=== PATIENT | male | born 1935 | race Caucasian/White ===

== ENCOUNTER 2024-09-13 22:58 | Inpatient (IN) | payer MEDICARE, OTHER ==
[~2024-09-13] VITALS: Ht 160 cm; Wt 52.2 kg
[2024-09-14 00:07] LABS: BASOPHILS % (AUTO) 0.7 % (0.0-2.0); EOSINOPHILS # (AUTO) 0.1 K/uL (0.0-0.7); EOSINOPHILS % (AUTO) 1.4 % (0.0-6.0); HEMATOCRIT 32 % (39-51); HEMOGLOBIN 10.6 g/dL (13.5-17.5); LYMPHOCYTES # (AUTO) 1.5 K/uL (0.8-4.8); LYMPHOCYTES % (AUTO) 21.7 % (20.0-44.0); MEAN CORPUSCULAR HEMOGLOBIN 33 PG (26.0-33.0); MEAN CORPUSCULAR HGB CONC 33 g/dl (31.0-36.0); MEAN CORPUSCULAR VOLUME 99 fL (80-96); MONOCYTES # (AUTO) 0.4 K/uL (0.1-1.30); MONOCYTES % (AUTO) 5.8 % (2.0-12.0); NEUTROPHILS # (AUTO) 4.8 K/uL (1.8-8.9); NEUTROPHILS % (AUTO) 70.4 % (43.0-81.0); PLATELET COUNT (AUTO) 138 K/uL (150-450); RED BLOOD CELL COUNT(AUTO) 3.27 MIL/uL (4.5-6.0); RED CELL DISTRIBUTION WIDTH 16.4 % (11.5-15.0); WHITE BLOOD COUNT (AUTO) 6.8 K/uL (4.3-11.0)
[2024-09-14 00:36] LABS: CALCIUM, SERUM 8.2 mg/dL (8.5-10.1); CARBON DIOXIDE 30 mmol/L (21-32); CHLORIDE 107 mmol/L (98-107); CREATININE 1.4 mg/dL (0.6-1.3); GLUCOSE 148 mg/dL (74-106); POTASSIUM 3.3 mmol/L (3.5-5.1); SODIUM SERUM 145 mmol/L (136-145); UREA NITROGEN, BLOOD 24 mg/dL (7-18)
[2024-09-14 00:41] LABS: ACETAMINOPHEN < 10 ug/ml (10-30); ALANINE AMINOTRANSFERASE 26 U/L (12-78); ALBUMIN 2.9 g/dL (3.4-5.0); ALCOHOL, BLOOD < 3 mg/dL (0-10); ALKALINE PHOSPHATASE 125 U/L (46-116); ASPARTATE AMINOTRANSFERASE 27 U/L (15-37); BILIRUBIN,DIRECT 0.2 mg/dL (0.0-0.2); BILIRUBIN,TOTAL 0.7 mg/dL (0.2-1.0); TOTAL PROTEIN, SERUM 6.1 g/dL (6.4-8.2)
[2024-09-14 01:15] LABS: SALICYLATE 0.5 mg/dL (2.8-20.0)
[2024-09-14] MEDS ORDERED: HYPR15DR4 EACHEYE (08:32)
[2024-09-14] MEDS ORDERED: HYDR-4303 PO (08:32)
[2024-09-14] MEDS ORDERED: AMIN30LI27 PO (08:32)
[2024-09-14] MEDS ORDERED: BUPR-54 PO (08:32)
[2024-09-14] MEDS ORDERED: FLUT16SP16 BNOSTRILS (08:32)
[2024-09-14] MEDS ORDERED: HYDR30CR79 RC (08:32)
[2024-09-14] MEDS ORDERED: LINA72CA PO (08:32)
[2024-09-14] MEDS ORDERED: HYDR28.32 TP (08:32)
[2024-09-14] MEDS ORDERED: LIDO1ADH82 TP (08:32)
[2024-09-14] MEDS ORDERED: LOPE2CAP14 PO (08:32)
[2024-09-14] MEDS ORDERED: ACET325T53 PO (08:32)
[2024-09-14] MEDS ORDERED: PANT40TA49 PO (08:32)
[2024-09-14] MEDS ORDERED: ERGO500093 PO (08:32)
[2024-09-14] MEDS ORDERED: ONDA4TAB11 PO (08:32)
[2024-09-14] MEDS ORDERED: DICL100G34 TP (08:32)
[2024-09-14] MEDS ORDERED: PARO40TA PO (08:32)
[2024-09-14] MEDS ORDERED: FAMO40TA7 PO (08:32)
[2024-09-14] MEDS ORDERED: FLUT1BLS IH (08:32)
[2024-09-14] MEDS ORDERED: NICO1PAT44 TP (08:32)
[2024-09-14] MEDS ORDERED: AMIO200T5 PO (08:32)
[2024-09-14] MEDS ORDERED: IRON1CAP4 PO (08:32)
[2024-09-14] MEDS ORDERED: DONE10TA44 PO (08:32)
[2024-09-14] MEDS ORDERED: APIX5TAB PO (08:32)
[2024-09-14] MEDS ORDERED: MULT-213 PO (08:32)
[2024-09-14] MEDS ORDERED: METO-357 PO (08:32)
[2024-09-14 11:52] LABS: APPEARANCE,URINE SLIGHTLY CLOUDY (CLEAR); BILIRUBIN,URINE NEGATIVE (NEGATIVE); BLOOD, URINE 3+ Ery/uL (NEGATIVE); COLOR,URINE YELLOW (YELLOW); KETONES,URINE NEGATIVE (NEGATIVE); LEUKOCYTE ESTERASE ,URINE NEGATIVE (NEGATIVE); NITRITE, URINE NEGATIVE (NEGATIVE); PROTEIN,URINE TRACE mg/dl (NEGATIVE); UGLUCOSE NEGATIVE (NEGATIVE); UROBILINOGEN,URINE 0.2 EU/dL (0.2)
[2024-09-14 12:07] LABS: ADD URINE CULTURE YES; BACTERIA,URINE None seen /HPF (None Seen); RBC,URINE TOO NUMEROUS TO COUN /HPF (0-2); SQUAMOUS EPITHELIAL CELL,UR None Seen /HPF (None Seen)
[2024-09-14 12:08] LABS: FINE GRANULAR CASTS,URINE Few /LPF (None Seen); TRICHOMONAS,URINE None Seen /HPF (None Seen); YEAST,URINE None Seen /HPF (None Seen)
[2024-09-14 12:13] LABS: AMPHETAMINE, URINE NEGATIVE (NEGATIVE); BARBITURATE, URINE NEGATIVE (NEGATIVE); BENZODIAZEPINE, URINE NEGATIVE (NEGATIVE); CANNABINOID, URINE NEGATIVE (NEGATIVE); COCCAINE, URINE NEGATIVE (NEGATIVE); OPIATE, URINE NEGATIVE (NEGATIVE); PHENCYCLIDINE SCREEN,URINE NEGATIVE (NEGATIVE)
[2024-09-15] MEDS ORDERED: METHOCARBAMOL (500MG) 500 MG TABLET ONE (00:06)
[2024-09-15] MEDS: METHOCARBAMOL (750MG) 750 MG TABLET PO SCH (00:14)
[2024-09-15 02:30] VITALS: BP 147/81; TEMP 98.3; O2SAT 97
[2024-09-15] MEDS ORDERED: MAGNESIUM HYDROXIDE 30 ML UDC PO PRN (03:00)
[2024-09-15] MEDS ORDERED: MAG HYDROX/AL HYDROX/SIMETH 30 ML UDC PO PRN (03:00)
[2024-09-15] MEDS ORDERED: ZOLPIDEM TARTRATE 5 MG TABLET PO PRN (03:00)
[2024-09-15] MEDS ORDERED: ACETAMINOPHEN 325 MG TABLET PO PRN (03:00)
[2024-09-15] MEDS: BLOOD SUGAR DIAGNOSTIC 1 EACH STRIP IN ONE (03:36)
[2024-09-15] MEDS ORDERED: HYDROCORTISONE CR 30 GM TUBE RC PRN (06:00)
[2024-09-15] MEDS ORDERED: HYDROCORTISONE 1% CREAM 28.35 GM TUBE TP PRN (06:00)
[2024-09-15] MEDS ORDERED: HYDROCODONE/APAP 5/325MG TABLET PO PRN (06:00)
[2024-09-15] MEDS ORDERED: POLYVINYL ALCOHOL 15 ML BOTTLE EACHEYE PRN (06:30)
[2024-09-15 08:00] VITALS: BP 148/79; TEMP 97.6; O2SAT 98
[2024-09-15] MEDS: PANTOPRAZOLE 40 MG TABLET.DR PO SCH (08:50)
[2024-09-15] MEDS: DICLOFENAC TOPICAL 100 GM TUBE TP SCH (08:51)
[2024-09-15] MEDS: FAMOTIDINE (20 MG) 20 MG TABLET PO SCH (08:52)
[2024-09-15] MEDS: AMIODARONE HCL 200 MG TABLET PO SCH (08:52)
[2024-09-15] MEDS: LIDOCAINE 5% (PATCH) 1 EA PATCH TP SCH (08:53)
[2024-09-15] MEDS: METOPROLOL SUCCINATE 50 MG TAB.SR.24H PO SCH (08:53)
[2024-09-15] MEDS: APIXABAN 5 MG TABLET PO SCH (08:54)
[2024-09-15] MEDS: PROSOURCE / PROSTAT (PYXIS) 30 ML UDC PO SCH (08:54)
[2024-09-15] MEDS ORDERED: Medication Not On Formulary EA (Linaclotide (Linzess) 72 MCG) PO SCH (09:00)
[2024-09-15] MEDS: OLANZAPINE 10 MG VIAL IM ONE (10:36)
[2024-09-15] MEDS: OXCARBAZEPINE 150 MG TABLET PO SCH (15:09)
[2024-09-15 16:00] VITALS: BP 139/71; TEMP 97.6; O2SAT 97
[2024-09-15] MEDS ORDERED: IRON PS CMPLX PO SCH (18:00)
[2024-09-15] MEDS ORDERED: [UNRECOGNIZED DRUG - OTHER] PO SCH (18:00)
[2024-09-15] MEDS ORDERED: VIT B12 PO SCH (18:00)
[2024-09-15] MEDS: NICOTINE PATCH (14MG) 14 MG PATCH.TD24 TD SCH (18:03)
[2024-09-15] MEDS: FLUTICASONE/VILANTEROL 1 EACH BLST.W.DEV IH SCH (18:03)
[2024-09-15] MEDS: MULTIVIT W/MINERALS 1 TAB TABLET PO SCH (18:03)
[2024-09-15 21:17] VITALS: BP 115/53; TEMP 97.9; O2SAT 97
[2024-09-15] MEDS: DONEPEZIL 5 MG TABLET PO SCH (21:22)
[2024-09-15] MEDS: ZOLPIDEM TARTRATE 5 MG TABLET PO PRN (21:24)
[2024-09-16 07:52] LABS: BASOPHILS # (AUTO) 0.1 K/uL (0.0-0.2); BASOPHILS % (AUTO) 0.8 % (0.0-2.0); EOSINOPHILS # (AUTO) 0.2 K/uL (0.0-0.7); EOSINOPHILS % (AUTO) 2.8 % (0.0-6.0); HEMATOCRIT 34 % (39-51); HEMOGLOBIN 11.3 g/dL (13.5-17.5); LYMPHOCYTES # (AUTO) 1.6 K/uL (0.8-4.8); LYMPHOCYTES % (AUTO) 23.4 % (20.0-44.0); MEAN CORPUSCULAR HEMOGLOBIN 33 PG (26.0-33.0); MEAN CORPUSCULAR HGB CONC 33 g/dl (31.0-36.0); MEAN CORPUSCULAR VOLUME 100 fL (80-96); MONOCYTES # (AUTO) 0.5 K/uL (0.1-1.30); MONOCYTES % (AUTO) 7.2 % (2.0-12.0); NEUTROPHILS # (AUTO) 4.5 K/uL (1.8-8.9); NEUTROPHILS % (AUTO) 65.8 % (43.0-81.0); PLATELET COUNT (AUTO) 119 K/uL (150-450); RED BLOOD CELL COUNT(AUTO) 3.42 MIL/uL (4.5-6.0); RED CELL DISTRIBUTION WIDTH 16.5 % (11.5-15.0); WHITE BLOOD COUNT (AUTO) 6.8 K/uL (4.3-11.0)
[2024-09-16 08:00] VITALS: BP 100/72; TEMP 98.7; O2SAT 98
[2024-09-16 08:15] LABS: CALCIUM, SERUM 8.5 mg/dL (8.5-10.1); CREATININE 1.1 mg/dL (0.6-1.3); POTASSIUM 3.8 mmol/L (3.5-5.1)
[2024-09-16] MEDS: QUETIAPINE FUMARATE 25 MG TABLET PO PRN (15:47)
[2024-09-16 16:00] VITALS: BP 145/71; TEMP 98; O2SAT 96
[2024-09-16 20:45] VITALS: BP 108/68; TEMP 98.1; O2SAT 96
[2024-09-17 08:00] VITALS: BP 116/74; TEMP 98.7; O2SAT 97
[2024-09-17 16:00] VITALS: BP 100/53; TEMP 98.1; O2SAT 97
[2024-09-17 20:12] VITALS: BP 102/59; TEMP 98.5; O2SAT 96
[2024-09-17] MEDS: CEPHALEXIN MONOHYDRATE 500 MG CAPSULE PO SCH (21:23)
[2024-09-18 08:00] VITALS: BP 103/57; TEMP 98.2; O2SAT 97
[2024-09-18 16:00] VITALS: BP 100/65; TEMP 97.9; O2SAT 98
[2024-09-18 20:00] VITALS: BP 105/67; TEMP 98.4; O2SAT 97
[2024-09-19 08:00] VITALS: BP 124/76; TEMP 97.9; O2SAT 97
[2024-09-19 16:00] VITALS: BP 113/68; TEMP 97.8; O2SAT 97
[2024-09-19] MEDS: AMOX/CLAVULANATE 875 MG TABLET PO SCH (16:25)
[2024-09-19 20:14] VITALS: BP 109/55; TEMP 97.7; O2SAT 98
[2024-09-19 21:04] VITALS: BP 113/65; TEMP 97.7; O2SAT 98
[2024-09-20 08:00] VITALS: BP 140/74; TEMP 98; O2SAT 98
[2024-09-20 16:00] VITALS: BP 125/60; TEMP 97.5; O2SAT 97
[2024-09-20] MEDS: Z GUARD REMEDY 4 OZ OINT TP PRN (17:25)
[2024-09-20 20:00] VITALS: BP 103/46; TEMP 97.7; O2SAT 98
[2024-09-21 09:38] VITALS: BP 134/78; TEMP 97.4; O2SAT 93
[2024-09-21 21:12] VITALS: BP 108/67; TEMP 97.9; O2SAT 95
[2024-09-22 08:00] VITALS: BP 100/63; TEMP 97.9; O2SAT 97
[2024-09-22 16:00] VITALS: BP 119/85; TEMP 97.8; O2SAT 98
[2024-09-22 20:57] VITALS: BP 104/69; TEMP 98.1; O2SAT 97
[2024-09-23 08:00] VITALS: BP 104/73; TEMP 98.7; O2SAT 96
[2024-09-23 09:52] LABS: ALBUMIN 2.9 g/dL (3.4-5.0); BILIRUBIN,TOTAL 0.6 mg/dL (0.2-1.0); CALCIUM, SERUM 8.4 mg/dL (8.5-10.1); CREATININE 1.2 mg/dL (0.6-1.3); MAGNESIUM 2.2 mg/dL (1.8-2.4); PHOSPHORUS 3.5 mg/dL (2.5-4.9); POTASSIUM 3.8 mmol/L (3.5-5.1); TOTAL PROTEIN, SERUM 6.6 g/dL (6.4-8.2)
[2024-09-23 10:05] LABS: BASOPHILS # (AUTO) 0.1 K/uL (0.0-0.2); BASOPHILS % (AUTO) 0.8 % (0.0-2.0); EOSINOPHILS # (AUTO) 0.2 K/uL (0.0-0.7); EOSINOPHILS % (AUTO) 2.3 % (0.0-6.0); HEMATOCRIT 34 % (39-51); HEMOGLOBIN 11.5 g/dL (13.5-17.5); LYMPHOCYTES # (AUTO) 1.5 K/uL (0.8-4.8); LYMPHOCYTES % (AUTO) 14.9 % (20.0-44.0); MEAN CORPUSCULAR HEMOGLOBIN 33 PG (26.0-33.0); MEAN CORPUSCULAR HGB CONC 33 g/dl (31.0-36.0); MEAN CORPUSCULAR VOLUME 98 fL (80-96); MONOCYTES # (AUTO) 0.5 K/uL (0.1-1.30); MONOCYTES % (AUTO) 5.3 % (2.0-12.0); NEUTROPHILS # (AUTO) 7.7 K/uL (1.8-8.9); NEUTROPHILS % (AUTO) 76.7 % (43.0-81.0); PLATELET COUNT (AUTO) 149 K/uL (150-450); RED CELL DISTRIBUTION WIDTH 16.3 % (11.5-15.0)
[2024-09-23 16:00] VITALS: BP 122/66; TEMP 97.9; O2SAT 97
[2024-09-23 20:16] VITALS: BP 111/67; TEMP 97.9; O2SAT 97
[2024-09-24 08:00] VITALS: BP 113/67; TEMP 98.7; O2SAT 96
[2024-09-24 16:00] VITALS: BP 104/70; TEMP 97.8; O2SAT 98
[2024-09-24 20:00] VITALS: BP 104/65; TEMP 97.7; O2SAT 98
[2024-09-25 08:00] VITALS: BP 100/52; TEMP 98.7; O2SAT 98
== END 2024-09-25 13:30 | DRG 885 ==
LOC: ER 23:11 → GPS 09-15 01:08
PROVIDERS: ADMIT Psychiatry & Neurology Psychiatry; ATTEND Student in an Organized Health Care Education/Training Program
DX: F39 Unspecified mood [affective] disorder (principal); N18.9 Chronic kidney disease, unspecified; N17.0 Acute kidney failure with tubular necrosis; E44.0 Moderate protein-calorie malnutrition; F03.92 Unspecified dementia, unspecified severity, with psychotic disturbance; N39.0 Urinary tract infection, site not specified; F03.93 Unspecified dementia, unspecified severity, with mood disturbance; F03.918 Unspecified dementia, unspecified severity, with other behavioral disturbance; G93.40 Encephalopathy, unspecified; F29 Unspecified psychosis not due to a substance or known physiological condition; I12.9 Hypertensive chronic kidney disease with stage 1 through stage 4 chronic kidney disease, or unspecified chronic kidney disease; K21.9 Gastro-esophageal reflux disease without esophagitis; D64.9 Anemia, unspecified; D69.6 Thrombocytopenia, unspecified; E87.6 Hypokalemia; I48.0 Paroxysmal atrial fibrillation; I73.9 Peripheral vascular disease, unspecified; R13.10 Dysphagia, unspecified; R47.02 Dysphasia; Z86.718 Personal history of other venous thrombosis and embolism; Z87.891 Personal history of nicotine dependence; Z20.822 Contact with and (suspected) exposure to COVID-19; Z73.6 Limitation of activities due to disability; F32.A Depression, unspecified; I27.20 Pulmonary hypertension, unspecified; Z68.20 Body mass index [BMI] 20.0-20.9, adult; R26.89 Other abnormalities of gait and mobility; J44.9 Chronic obstructive pulmonary disease, unspecified; B96.20 Unspecified Escherichia coli [E. coli] as the cause of diseases classified elsewhere
CPT/HCPCS: 36415; 80048-TC; 80053-TC; 80061-TC; 80076-TC; 81001; 82962-TC; 83735-TC; 84100-TC; 84443-TC; 85025-TC; 87081-TC; 87086-TC; 97110-TC; 97116-TC; 97530-TC; G0480; J3490